=== PATIENT | female | born 1970 | race African-American/Black ===

== ENCOUNTER 2023-03-01 13:56 | Emergency (ER) | payer BC, OTHER ==
[2023-03-01 14:28] VITALS: BP 158/103; PULSE 68; RESP 16; TEMP 98.7; BMI 47.2
== END 2023-03-01 15:45 | disposition home or self-care (01) ==
LOC: FER 13:56
DX: R05.9 Cough, unspecified (principal); Z77.120 Contact with and (suspected) exposure to mold (toxic)
CPT/HCPCS: 71046-TC-FY; 99283-25